=== PATIENT | female | born 1985 | race Caucasian/White ===

== ENCOUNTER 2021-05-21 18:55 | Emergency (ER) | payer OTHER, SELFPAY ==
--- NOTE | 2021-05-21 20:16 | ED_ITS ---
HPI - SOB/Dyspnea General Chief Complaint: Shortness of Breath/Dyspnea Stated Complaint: COVID+, Worsening Symptoms Time Seen by Provider: 05/21/21 19:30 History of Present Illness HPI Narrative: 35-year-old female nonsmoker with noncontributory chronic medical history presents with a chief complaint of increasing dry and hacking cough. She was recently exposed to a person known to have COVID-19 and started having symptoms soon thereafter. She is on day 7 of her symptoms. She did not get a vaccination. She has had runny nose and sore throat. She has a dry and hacking cough. She denies any fever but has had chills. She has had nausea but denies any vomiting. She denies dysuria, frequency or urgency Related Data Previous Rx's Medication Instructions Recorded albuterol sulfate 90 mcg/actuation 2 inh INHALATION Q4-6H PRN #6.7 g 05/21/21 aerosol inhaler benzonatate 100 mg capsule 100 mg PO TID PRN #14 cap 05/21/21 (Gael Og) Allergies Allergy/AdvReac Type Severity Reaction Status Date / Time codeine Allergy Unknown Verified 05/21/21 20:37 Review of Systems Review of Systems Narrative: GENERAL: See HPI HEENT: See HPI RESPIRATORY: See HPI CARDIOVASCULAR: Denies chest pain, palpitations, orthopnea, edema, GASTROINTESTINAL: Denies nausea, vomiting, abdominal pain, diarrhea, constipation, melena. : Denies dysuria, frequency, incontinence, hematuria, urinary retention. MUSCULOSKELETAL: denies weakness, joint pain, or bony pain SKIN: Denies rash, skin lesions, or other NEUROLOGIC: Denies weakness, headache, numbness, change in speech, confusion, seizures, incoordination. PSYCHIATRIC: No concerning psychosocial issues. 12 point review of systems is negative except for those stated above Patient History Social History Smoking Status: Never smoker Exam Narrative Exam Narrative: GENERAL: [A 35] year old patient appears stated age. Well- developed patient, in mild distress. Frequent dry hacking cough but no evidence of respiratory distress, no hypoxia, belly breathing or use of accessory muscles HEAD: Atraumatic. Normocephalic. EYES: Pupils equal round and reactive. Extraocular motions intact. No scleral icterus. No injection or drainage. ENT: Nose without bleeding, purulent drainage. Throat without erythema, tonsillar hypertrophy or exudate. Airway patent. NECK: Trachea midline. Non tender CARDIOVASCULAR: Regular rate and rhythm without murmurs, gallops, or rubs. RESPIRATORY: Faint crackles in bilateral bases, no evidence of respiratory distress, tachypnea, use of intercostals GASTROINTESTINAL: Abdomen soft, non-tender, nondistended. EXTREMITIES: No edema or joint tenderness. BACK: Nontender without deformity or crepitance. No flank tenderness. NEURO: AOx3. SKIN: No rash or erythema of visible areas Initial Vital Signs Initial Vital Signs: Vital Signs Temperature 101.9 F H 05/21/21 20:47 Pulse Rate 97 H 05/21/21 20:47 Respiratory Rate 24 05/21/21 20:47 Blood Pressure 107/59 L 05/21/21 20:47 Pulse Oximetry 97 05/21/21 20:47 Course Orders Ordered: Discontinued Medications Ondansetron HCl (Ondansetron 4 Mg Odt Prepack) 1 bottle MISC SEEINSTR ONE Stop: 05/21/21 20:31 Last Admin: 05/21/21 20:46 Dose: 1 bottle Documented by: ALANNAH Vital Signs Vital signs: Vital Signs - 8 hr 05/21/21 20:47 Temperature 101.9 F H Pulse Rate 97 H Respiratory Rate 24 Blood Pressure 107/59 L Pulse Oximetry 97 MDM - SOB/Dyspnea MDM Narrative Medical decision making narrative: Patient with known COVID on day 7 with very reassuring physical exam, vitals and history. She does have a frequent dry hacking cough but demonstrates no sign of respiratory distress, requires no supplemental oxygen. No indication for significant evaluation. Extensive return precautions given and questions answered to her apparent satisfaction Discharge Plan Departure Patient Disposition: Home Clinical Impression: COVID-19 Instructions: DI for COVID-19 (Suspected or Confirmed ) Activity Restrictions/Additional Instructions: *You have been diagnosed with [ COVID-19] *What to do: * per recommendations from the CDC and the [facility] Department of Health * stay home except to get medical care. Restrict activities outside your home, except for getting medical care. Do not go to work, school, or public areas. Avoid using public transportation, ride sharing, or taxis. * separate yourself from other people in your home. * call ahead before visiting your doctor * Wear a facemask * Cover your coughs and sneezes * Clean your hands often * Avoid sharing household items * Clean all high-touch services every day * Monitor your symptoms and seek prompt medical attention if your illness is worsening, particularly with difficulty in breathing. You may discontinue your isolation when: 1. You have been fever-free for at least 24 hours without the use of fever reducing medication, AND 2. Your symptoms are getting better 3. At least 10 days have passed since symptoms first appeared Individuals with laboratory confirmed COVID-19 who have not had any symptoms may discontinue home isolation when at least 10 days have passed since the date of their first COVID-19 diagnostic test and have had no subsequent illness Your prescriptions, as we discussed, have been sent to [facility] in [place] Prescriptions: New albuterol sulfate 90 mcg/actuation HFA aerosol inhaler 2 inh inhalation Q4-6H PRN (Reason: shortness of breath or wheezing) Qty: 6.7 RF: 0 benzonatate [Tessalon Perles] 100 mg capsule 100 mg PO TID PRN (Reason: cough) Qty: 14 RF: 0
[2021-05-21] MEDS: ONDANSETRON 4 MG ODT PREPACK 1 BOTTLE MISC (20:46)
[2021-05-21 20:47] VITALS: BP 107/59; PULSE 97; RESP 24; TEMP 38.8; O2SAT 97
== END 2021-05-21 21:23 | disposition home or self-care (01) ==
PROVIDERS: Emergency Provider Emergency Medicine
DX: U07.1 COVID-19 (principal)
CPT/HCPCS: 99281